=== PATIENT | male | born 1950 | race Two or more races ===

== ENCOUNTER 2020-07-28 11:15 | Inpatient (IN) | payer OTHER ==
[~2020-07-28] VITALS: Ht 170.2 cm; Wt 84.4 kg
[2020-07-28] MEDS ORDERED: SEPTRA (13:50)
[2020-07-28] MEDS ORDERED: ZESTRIL10 M1 PO (13:50)
[2020-07-28] MEDS ORDERED: ATORVASTATIN CA10 MG PO (13:50)
[2020-07-28] MEDS ORDERED: AMLODIPINE BESYL5 MG PO (13:51)
[2020-07-28] MEDS ORDERED: LEVOTHYROXINE25 MCG PO (13:51)
[2020-08-04] MEDS ORDERED: CALCIUM CARBON600 MG (09:46)
[2020-08-04] MEDS ORDERED: LEVOTHYROXINE50 MCG (09:46)
[2020-08-04] MEDS ORDERED: BACTRIM DS TAB1 EACH PO (09:48)
[2020-08-06] MEDS ORDERED: ELIQUIS2.5 MG PO (17:32)
[2020-08-06] MEDS ORDERED: PERCOCET 5-3251 EACH PO (17:32)
[2020-08-06] MEDS ORDERED: DUI500 PO (17:32)
== END 2020-08-06 19:18 | DRG 470 ==
LOC: SURH 08-04 06:15 → O/R 08-04 06:42 → SURG 08-04 06:42 → SURH 08-04 11:15 → SURG 08-04 11:53
PROVIDERS: ADMIT Orthopaedic Surgery; ATTEND Orthopaedic Surgery
PROC: 0SRD0J9 Replacement of Left Knee Joint with Synthetic Substitute, Cemented, Open Approach (ICD-10-PCS; principal; 2020-08-04 06:15)
DX: M17.12 Unilateral primary osteoarthritis, left knee (principal); M22.12 Recurrent subluxation of patella, left knee; I10 Essential (primary) hypertension

== ENCOUNTER 2024-07-08 08:45 | Inpatient (IN) | payer OTHER ==
[~2024-07-08] VITALS: Ht 170.2 cm; Wt 77.1 kg
[~2024-07-08 08:45] MED LIST: AMLODIPINE BESYL5 MG PO; ATORVASTATIN CA10 MG PO; BACTRIM DS TAB1 EACH PO; CALCIUM CARBON600 MG; DUI500 PO; ELIQUIS2.5 MG PO; LEVOTHYROXINE25 MCG PO; LEVOTHYROXINE50 MCG; PERCOCET 5-3251 EACH PO; SEPTRA; ZESTRIL10 M1 PO
[2024-07-08 09:19] VITALS: BP 132/70
[2024-07-08 10:21] LABS: URINE APPEARANCE Clear; URINE BILIRRUBIN Negative (NEGATIVE); URINE BLOOD Negative; URINE COLOR Yellow; URINE GLUCOSE Negative (NEGATIVE); URINE KETONE Negative (NEGATIVE); URINE LEUKOCYTE Negative; URINE NITRATE Negative; URINE PROTEIN Negative (NEGATIVE); URINE UROBILINOGEN 0.2 E.U./dl
[2024-07-08 10:26] LABS: URINE BACTERIA 14.6 uL (0.0-1933); URINE WBC 2.8 uL (0.0-23.2)
[2024-07-08 10:30] LABS: URINE CAST 0.29 uL (0.0-1.40); URINE EPITHELIAL CELLS 1.1 uL (0.0-38.8); URINE RBC 0.4 uL (0.0-20.8)
[2024-07-08 10:40] LABS: HEMOGLOBIN 12.2 g/dL (13-16.00); MEAN CELL VOLUME 99.3 fL (80.0-100.00); MEAN CORPUSCULAR HEMOGLOBIN 33.6 pg (27.00-32.0); MEAN CORPUSCULAR HGB CONC 33.8 g/dl (32.0-36.0); PLATELET COUNT 195 K/uL (150-450); RED BLOOD COUNT 3.62 M/uL (4.00-6.00); RED CELL DISTRIBUTION WIDTH 13.9 % (11.5-14.5)
[2024-07-08 11:22] LABS: INR 0.94; PARTIAL THROMBOPLASTIN TIME 27.3 SECONDS (22.0-34.0); PROTHROMBIN TIME 10.3 SECONDS (9.0-11.5)
[2024-07-08 11:27] LABS: BILIRUBIN TOTAL 0.64 mg/dL (0.3-1.2); CALCIUM 8.5 mg/dL (8.5-10.1); CHOL HDL RATIO 2.2 (0-5.0); CREATININE SERUM 1.49 mg/dL (0.70-1.30); GFR 45.98; GLOBULINA 3.3 G/DL (2.4-3.5); TOTAL PROTEIN 7.3 gm/dL (6.4-8.2)
[2024-07-08 12:21] LABS: POTASSIUM 6.22 mEq/L (3.5-5.1)
[2024-07-08 12:36] LABS: RH POSITIVE
[2024-07-16] MEDS ORDERED: POVIDONE-IODINE 118 ML BOTT TOP ONE (07:16)
[2024-07-16] MEDS ORDERED: KETOROLAC TROMETHAMINE 60 MG VIAL IM ONE (07:16)
[2024-07-16] MEDS ORDERED: BUPIVACAINE HCL/MPF 0.5% 30ML VIAL ONE (07:16)
[2024-07-16] MEDS ORDERED: CEFAZOLIN SODIUM 1,000 MG VIAL ONE (07:17)
[2024-07-16] MEDS ORDERED: TRANEXAMIC ACID 100MG/1ML (1000MG) AMPUL IV ONE (07:17)
[2024-07-16] MEDS ORDERED: VANCOMYCIN HCL 1,000 MG VIAL ONE (07:17)
[2024-07-16] MEDS ORDERED: LIDOCAINE HCL 1%/EPINEPHRINE 20ML VIAL IJ ONE (07:17)
[2024-07-16] MEDS ORDERED: ISOPROPYL ALCOHOL 30 ML OUNCE TOP ONE (07:20)
[2024-07-16] MEDS ORDERED: METHYLPREDNISOLONE ACETATE 80 MG/ML VIAL ONE (07:20)
[2024-07-16] MEDS ORDERED: MORPHINE SULFATE 4 MG/ML VIAL IV ONE (08:45)
[2024-07-16] MEDS ORDERED: ONDANSETRON HCL 2 MG/ML VIAL IV PRN (09:15)
[2024-07-16] MEDS ORDERED: MORPHINE SULFATE 4 MG/ML CARTRIDGE IV PRN (09:15)
[2024-07-16] MEDS ORDERED: OxyCODONE HCL 5 MG TABLET (ROXICODONE) PO PRN (09:15)
[2024-07-16] MEDS ORDERED: SODIUM CHLORIDE 0.45 % 1,000 ML IV SCH (09:15)
[2024-07-16] MEDS ORDERED: ACETAMINOPHEN 500 MG GEL..CAP PO SCH (12:00)
[2024-07-16 13:42] VITALS: BP 114/61; O2SAT 96
[2024-07-16 16:00] VITALS: BP 143/64; O2SAT 98
[2024-07-16] MEDS ORDERED: CEFAZOLIN SODIUM 1,000 MG VIAL IV SCH (17:00)
[2024-07-16] MEDS ORDERED: ATORVASTATIN CALCIUM 10 MG TABLET PO SCH (17:00)
[2024-07-16] MEDS ORDERED: GABAPENTIN 300 MG CAPSULE PO SCH (17:00)
[2024-07-17] MEDS ORDERED: LEVOTHYROXINE SODIUM 50 MCG TABLET PO SCH (06:00)
[2024-07-17 07:12] LABS: HEMATOCRIT 35.6 % (39.0-48.0); HEMOGLOBIN 12.2 g/dL (13-16.00); MEAN CELL VOLUME 98.7 fL (80.0-100.00); MEAN CORPUSCULAR HEMOGLOBIN 33.9 pg (27.00-32.0); MEAN CORPUSCULAR HGB CONC 34.4 g/dl (32.0-36.0); PLATELET COUNT 203 K/uL (150-450); RED CELL DISTRIBUTION WIDTH 13.7 % (11.5-14.5)
[2024-07-17 08:31] VITALS: BP 134/64; O2SAT 95
[2024-07-17] MEDS ORDERED: ELIQUIS2.5 MG PO (08:36)
[2024-07-17] MEDS ORDERED: PERCOCET 5-3251 EACH PO (08:36)
[2024-07-17] MEDS ORDERED: DUI500 PO (08:36)
[2024-07-17] MEDS ORDERED: LISINOPRIL 10 MG TABLET PO SCH (09:00)
[2024-07-17] MEDS ORDERED: SENNOSIDES 1 TAB TABLET PO SCH (09:00)
[2024-07-17] MEDS ORDERED: APIXABAN 2.5 MG TABLET PO SCH (09:00)
[2024-07-17] MEDS ORDERED: AMLODIPINE BESYLATE 5 MG TABLET PO SCH (09:00)
[2024-07-17 14:29] LABS: ALBUMIN 3.7 gm/dL (3.4-5.0); BILIRUBIN TOTAL 0.99 mg/dL (0.3-1.2); CALCIUM 8.6 mg/dL (8.5-10.1); CREATININE SERUM 1.25 mg/dL (0.70-1.30); GFR 56.31; GLOBULINA 3.2 G/DL (2.4-3.5); POTASSIUM 5.33 mEq/L (3.5-5.1); TOTAL PROTEIN 6.9 gm/dL (6.4-8.2)
[2024-07-17 16:00] VITALS: BP 152/54
[2024-07-17] MEDS ORDERED: VITAMIN B COMPLEX 1 EACH PO SCH (17:00)
[2024-07-17] MEDS ORDERED: SOD FERRIC GLUC COMPLX/SUCROSE 62.5 MG/5 ML AMPUL IV SCH (17:00)
[2024-07-17] MEDS ORDERED: Cyanocobalamin/Mecobalamin 1 TAB.SL SL SCH (17:00)
[2024-07-18] VITALS: BP 133/71; O2SAT 95
[2024-07-18 07:16] LABS: HEMOGLOBIN 10.5 g/dL (13-16.00); MEAN CELL VOLUME 98.1 fL (80.0-100.00); MEAN CORPUSCULAR HEMOGLOBIN 34.3 pg (27.00-32.0); PLATELET COUNT 193 K/uL (150-450); RED BLOOD COUNT 3.06 M/uL (4.00-6.00); RED CELL DISTRIBUTION WIDTH 13.8 % (11.5-14.5)
[2024-07-18 08:00] VITALS: BP 128/67; O2SAT 95
[2024-07-18] MEDS ORDERED: IRON FUM,PS/FOLIC ACID/VITC/B3 1 CAP CAPSULE PO SCH (09:00)
[2024-07-18 16:25] VITALS: BP 111/55; O2SAT 98
== END 2024-07-18 18:55 | DRG 470 ==
LOC: O/R 07-16 05:22 → SURH 07-16 08:45 → SURG 07-16 12:51 → SURH 07-16 16:00 → SURG 07-18 18:55
PROVIDERS: ADMIT Orthopaedic Surgery; ATTEND Orthopaedic Surgery
PROC: 0SRC0J9 Replacement of Right Knee Joint with Synthetic Substitute, Cemented, Open Approach (ICD-10-PCS; principal; 2024-07-16 16:00)
DX: M17.11 Unilateral primary osteoarthritis, right knee (principal); D62 Acute posthemorrhagic anemia; M22.11 Recurrent subluxation of patella, right knee; I10 Essential (primary) hypertension; E03.9 Hypothyroidism, unspecified